=== PATIENT | male | born 1945 | race Caucasian/White ===

== ENCOUNTER 2016-12-16 16:23 | Observation (INO) | payer OTHER ==
[2016-12-16] MEDS ORDERED: XANAX PO PRN (16:39)
[2016-12-16] MEDS ORDERED: MORPHINE SULFATE INJ 2 MG IVP PRN (16:42)
--- NOTE | 2016-12-16 17:29 | DR.H&P ---
H&P - History & Physical for Day of: H&P Date: 12/16/16 - Chief Complaint Chief Complaint: ABDOMINAL PAIN, STOMACH BLOATED, CANT EAT - History of Present Illness History of Present Illness: 71WM DIRECT ADMIT FROM DR RODRIGUES OFFICE WITH CO RIGHT SIDE RIGHT LOWER ABDOMINAL PAIN WITH BLOATING. PT STATES HE HAS HAD MUCOUS IN STOOL, CANNOT EAT DUE TO SEVERE BLOATING, "FEELS FULL". PT STATES HE RAN LOW GRADE FEVER FOR 3-4 DAYS. PT HAS PMH OF HTN, OA, COPD, ETOH USE. PT HAS HX DIVERTICULITIS. PLAN TO ADMIT FOR EVALUATION OF ABDMINAL PAIN, ADMISSION LABS , CT SCAN ABD/PELVIS. 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 03/2015--[facility]--BLEEDING FROM RECTUM. 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 - Social History Does patient currently use any type of tobacco product: Yes Have you used tobacco products in the last 12 months: Yes Type of Tobacco Use: Cigarettes Does any household member use tobacco: Yes Alcohol Use: Occasionally - Review of Systems Constitutional: Fever, Weakness Eyes: No Symptoms Reported ENT: No Symptoms Reported Respiratory: No Symptoms Reported Cardiovascular: No Symptoms Reported Gastrointestinal: Nausea, Abdominal Pain, Other (GAS, BLOATING) Genitourinary: No Symptoms Reported Musculoskeletal: Back Pain Skin: No Symptoms Reported Neurological: No Symptoms Reported Oriented: Normal Eyes: Normal Ear: Normal Nose: Normal Throat: Normal Respiratory: RLL Exp. Wheeze, LLL Exp. Wheeze Cardiovascular: Normal : Normal Auscultation: Bowel Sounds: Normal Tenderness: Normal Skin: Normal Musculoskeletal: Normal Psychiatric: Anxiety Speech Pattern: Clear, Appropriate - Assessment/Plan (1) Abdominal pain Qualifiers: Abdominal location: A Status: Acute Plan: ADMISSION LABS, CBC CMP AMYLASE LIPASE, UA. CT ABD PELVIS, PAIN AND NAUSEA CONTROL (2) Mucous in stools Status: Acute
[2016-12-16] MEDS: CIPRO IV 400 MG PREMIX* 400 MG/200 ML IV.SOLN. IV SCH ×2 (18:18→21:26)
[2016-12-16 18:27] LABS: BASOPHILS # (AUTO) 0.1 X10^3/uL (0.0-0.1); BASOPHILS % (AUTO) 0.4 % (0.2-1.0); EOSINOPHILS # (AUTO) 0.4 x10^3/uL (0.0-0.2); EOSINOPHILS % (AUTO) 3.3 % (0.9-2.9); HEMATOCRIT 40.2 % (42.0-54.0); HEMOGLOBIN 13.2 g/dL (13.5-18.0); LYMPHOCYTES # (AUTO) 2.3 X10^3/uL (1.3-2.9); LYMPHOCYTES % (AUTO) 17.2 % (21.0-51.0); MEAN CORPUSCULAR HEMOGLOBIN 25.8 pg (27.0-34.0); MEAN CORPUSCULAR HGB CONC 32.9 g/dL (33.0-35.0); MEAN CORPUSCULAR VOLUME 78.4 fL (80.0-100.0); MEAN PLATELET VOLUME 8.4 fL (7.4-11.0); MONOCYTES # (AUTO) 1.9 x10^3/uL (0.3-0.8); MONOCYTES % (AUTO) 14.3 % (0.0-13.0); NEUTROPHILS # (AUTO) 8.7 x10^3/uL (2.2-4.8); NEUTROPHILS % (AUTO) 64.8 % (42.0-75.0); PLATELET COUNT 740 X10^3/uL (150.0-450.0); RED BLOOD COUNT 5.13 X10^6/uL (4.7-6.0); RED CELL DISTRIBUTION WIDTH 20.7 % (11.6-16.5); WHITE BLOOD COUNT 13.4 X10^3/uL (3.6-10.0)
[2016-12-16 18:33] LABS: ANISOCYTOSIS SLIGHT; HYPOCHROMASIA SLIGHT; MICROCYTOSIS SLIGHT; PLATELET MORPHOLOGY COMMENT NORMAL (NORMAL)
[2016-12-16] MEDS: PROTONIX INJ 40 MG VIAL IVP SCH (18:39)
[2016-12-16 18:41] LABS: ALANINE AMINOTRANSFERASE 29 Units/L (12-78); ALBUMIN 3.2 g/dL (3.4-5.0); ALKALINE PHOSPHATASE 128 Units/L (46-116); AMYLASE 55 Units/L (25-115); ASPARTATE AMINO TRANSFERASE 17 Units/L (15-37); BLOOD UREA NITROGEN 19 mg/dL (7-18); CALCIUM 9.6 mg/dL (8.5-10.1); CARBON DIOXIDE 28.1 mmol/L (21-32); CHLORIDE 97 mmol/L (98-107); COR CA(FOR HYPOALB) 10.2 mg/dL (8.5-10.1); COR NA(FOR HYPERGLY) 136 mmol/L (136-145); CREATININE 1.22 mg/dL (0.70-1.30); GLUCOSE 179 mg/dL (65-99); LIPASE 75 Units/L (73-393); SODIUM 134 mmol/L (136-145); TOTAL PROTEIN 8.4 g/dL (6.4-8.2); eGFR BLACK RACES > 60 (>60); eGFR NON BLACK RACES > 60 (>60)
[2016-12-16 19:12] LABS: BILIRUBIN,URINE NEGATIVE (NEGATIVE); BLOOD/HEMOGLOBIN,URINE 1+ (NEGATIVE); GLUCOSE, URINE 1+ (NEGATIVE); KETONES,URINE 1+ (NEGATIVE); LEUKOCYTE ESTERASE ,URINE 1+ (NEGATIVE); NITRITES,URINE NEGATIVE (NEGATIVE); PROTEIN,URINE 2+ (NEGATIVE); UROBILINOGEN,URINE NORMAL (NORMAL)
[2016-12-16 19:17] LABS: APPEARANCE,URINE HAZY (CLEAR); BACTERIA,URINE TRACE /HPF (NEGATIVE); COLOR,URINE YELLOW (YELLOW); RBC,URINE 0-2 /HPF (NEGATIVE); SQUAMOUS EPITHELIAL CELL,UR NEGATIVE /HPF (NEGATIVE)
[2016-12-16] MEDS ORDERED: NS 100 ML IV 100 ML IV ONE (19:46)
--- NOTE | 2016-12-16 21:06 | RAD ---
HISTORY: Abdominal pain, fever Study: Single view chest Comparison: 03/13/2015 Findings: Lungs appear hyperinflated. Overlapping rib shadows are seen at the left lung base. The lungs are cl ear without consolidation, effusion or pneumothorax. The cardiac and mediastinal contours are within normal limits. The soft tissues are unremarkable. IMPRESSION: 1. No acute cardiopulmonary abnormality. Reported By:
--- NOTE | 2016-12-16 21:22 | CT ---
HISTORY: Abdominal pain, fever, right lower abdominal pain, mucous in stool Study: CT abdomen and pelvis with contrast Comparison: 03/29/2016, 03/13/2015 Technique: Multiple axial images of the abdomen and pelvis were obtained with IV contrast. Oral contrast was a dministered. Dose reduction techniques including Automated Exposure Control (AEC) and adjustment of mA and kV were utilized. Findings: Emphysematous changes are present at the lung bases. The spleen is removed. The liver, kidneys and adrenal glands are stable and unremarkable. The gallbladder is normal. 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 There is a low-density cystic lesion seen at the body of the pancreas at the resection site measuring 2.7 by 2.1 cm. There is an additional lo bular soft tissue lesion just anterior to the above described cystic lesion measuring 3.4 x 2.2 cm t hat is smaller from the prior exam where it previously measured 4.6 x 3 cm. Findings could represent postsurgical change or lymph nodes. No free intraperitoneal air. No evidence of intestinal obstruction or inflammation. Oral contrast re aches the rectum. The cecum is positioned in the right upper abdomen. The appendix is not visualized . There are scattered colonic diverticula present without acute inflammation. No free fluid identifi ed. The soft tissues and osseous structures are unremarkable. The vascular structures are within normal limits for age. No pathologically enlarged lymph nodes are identified. IMPRESSION: 1. 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 Continued attention on followup is recommended. There is also an adjacent lobular soft tissue lesion seen anteriorly that measures 3.4 x 2.2 cm on today's exam ( previously 4.6 x 3 cm) that could represent resolving postsurgical changes versus lymph nodes. 2. Chronic findings as described above. Reported By:
[2016-12-17 05:57] LABS: BASOPHILS # (AUTO) 0.1 X10^3/uL (0.0-0.1); BASOPHILS % (AUTO) 0.7 % (0.2-1.0); EOSINOPHILS # (AUTO) 0.6 x10^3/uL (0.0-0.2); EOSINOPHILS % (AUTO) 4.7 % (0.9-2.9); HEMATOCRIT 36.3 % (42.0-54.0); HEMOGLOBIN 11.9 g/dL (13.5-18.0); LYMPHOCYTES # (AUTO) 1.9 X10^3/uL (1.3-2.9); LYMPHOCYTES % (AUTO) 16.1 % (21.0-51.0); MEAN CORPUSCULAR HEMOGLOBIN 26.2 pg (27.0-34.0); MEAN CORPUSCULAR HGB CONC 32.8 g/dL (33.0-35.0); MEAN PLATELET VOLUME 8.8 fL (7.4-11.0); MONOCYTES # (AUTO) 2.3 x10^3/uL (0.3-0.8); MONOCYTES % (AUTO) 19.7 % (0.0-13.0); NEUTROPHILS # (AUTO) 6.9 x10^3/uL (2.2-4.8); NEUTROPHILS % (AUTO) 58.8 % (42.0-75.0); PLATELET COUNT 641 X10^3/uL (150.0-450.0); RED BLOOD COUNT 4.54 X10^6/uL (4.7-6.0); RED CELL DISTRIBUTION WIDTH 20.5 % (11.6-16.5); WHITE BLOOD COUNT 11.8 X10^3/uL (3.6-10.0)
[2016-12-17 06:30] LABS: ALANINE AMINOTRANSFERASE 23 Units/L (12-78); ALBUMIN 2.6 g/dL (3.4-5.0); ALKALINE PHOSPHATASE 105 Units/L (46-116); ANISOCYTOSIS 1+; ASPARTATE AMINO TRANSFERASE 21 Units/L (15-37); BLOOD UREA NITROGEN 13 mg/dL (7-18); CALCIUM 9.3 mg/dL (8.5-10.1); CARBON DIOXIDE 26.4 mmol/L (21-32); CHLORIDE 101 mmol/L (98-107); COR CA(FOR HYPOALB) 10.4 mg/dL (8.5-10.1); COR NA(FOR HYPERGLY) 137 mmol/L (136-145); CREATININE 1.03 mg/dL (0.70-1.30); GLUCOSE 133 mg/dL (65-99); PLATELET MORPHOLOGY COMMENT NORMAL (NORMAL); SODIUM 136 mmol/L (136-145); eGFR BLACK RACES > 60 (>60); eGFR NON BLACK RACES > 60 (>60)
[2016-12-17] MEDS: PROTONIX INJ 40 MG VIAL IVP SCH (09:46)
[2016-12-17] MEDS: CIPRO IV 400 MG PREMIX* 400 MG/200 ML IV.SOLN. IV SCH ×2 (09:46→21:53)
[2016-12-17] MEDS: NORCO 10/325 TAB PO PRN ×2 (11:25→21:54)
[2016-12-17] MEDS ORDERED: NS 100 ML IV 100 ML IV ONE (13:42)
[2016-12-17] MEDS: PEPCID 20 MG IV PREMIX* 20 MG/50 ML BAG IV SCH ×2 (13:45→21:53)
[2016-12-17] MEDS: DUONEB 0.5 MG/3 MG NEB SCH ×2 (14:06→21:36)
[2016-12-17 15:16] VITALS: BMI 23.6
[2016-12-17] MEDS ORDERED: PREVNAR 13 IM ONE (15:17)
--- NOTE | 2016-12-17 17:35 | PCM.PROG ---
Progress Note - Progress Note for Day of Date: 12/17/16 - Subjective Subjective: NAUSEA, CANNOT EAT, BLOATING. 71 WM ADMITTED ON 12/16 FOR TREATMENT OF ABD PAIN N/V/D. PT HAD CT ABD PELVIS ON ADMISSION, PLAN TO HIDA Q AM. WILL CONTINUE PPI, IV CIPRO. PT HAS HX NON MALIGNANT PANCREATIC MASS. WILL CHECK TUMOR MARKERS AND PSA. REPEAT AM LABS - Past Medical Family Social History Past Med/Fam/Surg Hx: No changes since H&P Allergies: Allergies No Known Drug Allergy Allergy (Verified 03/13/15 12:30) - Review of Systems ROS: No change since H&P - Vital Signs and I&O's Vital Signs: Temperature 98.2 F Pulse Rate [Left Brachial] 114 Pulse Rate [Right Brachial] 84 Pulse Rate 90 Respiratory Rate 20 Blood Pressure [Left Arm] 136/89 Blood Pressure [Right Arm] 154/90 Blood Pressure [Left Arm] 156/89 Blood Pressure [Right Arm] 130/77 Blood Pressure 164/82 O2 Sat by Pulse Oximetry 95 Intake and Output: Intake & Output 12/15/16 12/16/16 12/17/16 12/18/16 11:59 11:59 11:59 11:59 Intake Total 300 605 Balance 300 605 - Physical Exam Oriented: Normal Eyes: Normal Ear: Normal Nose: Normal Throat: Normal Respiratory: Diminished Cardiovascular: Normal : Normal Auscultation: Bowel Sounds: Normal Tenderness: RUQ, RLQ, Epigastric Skin: Normal Musculoskeletal: Normal Psychiatric: Anxiety Speech Pattern: Clear, Appropriate - Laboratory and Diagnostics Result Diagrams: 12/17/16 03:25 12/17/16 03:25 Labs: Laboratory WBC 11.8 X10^3/uL (3.6-10.0) H 12/17/16 03:25 RBC 4.54 X10^6/uL (4.7-6.0) L 12/17/16 03:25 Hgb 11.9 g/dL (13.5-18.0) L 12/17/16 03:25 Hct 36.3 % (42.0-54.0) L 12/17/16 03:25 MCV 80.0 fL (80.0-100.0) 12/17/16 03:25 MCH 26.2 pg (27.0-34.0) L 12/17/16 03:25 MCHC 32.8 g/dL (33.0-35.0) L 12/17/16 03:25 RDW 20.5 % (11.6-16.5) H 12/17/16 03:25 Plt Count 641 X10^3/uL (150.0-450.0) H 12/17/16 03:25 Plt Count Comment Increased (ADEQUATE) 12/17/16 03:25 MPV 8.8 fL (7.4-11.0) 12/17/16 03:25 Neut % 58.8 % (42.0-75.0) 12/17/16 03:25 Lymph % 16.1 % (21.0-51.0) L 12/17/16 03:25 [place] % 19.7 % (0.0-13.0) H 12/17/16 03:25 Eos % 4.7 % (0.9-2.9) H 12/17/16 03:25 Baso % 0.7 % (0.2-1.0) 12/17/16 03:25 Neut # 6.9 x10^3/uL (2.2-4.8) H 12/17/16 03:25 Lymph # 1.9 X10^3/uL (1.3-2.9) 12/17/16 03:25 [place] # 2.3 x10^3/uL (0.3-0.8) H 12/17/16 03:25 Eos # 0.6 x10^3/uL (0.0-0.2) H 12/17/16 03:25 Baso # 0.1 X10^3/uL (0.0-0.1) 12/17/16 03:25 Absolute Nucleated RBC 0.1 /100WBC 12/17/16 03:25 Plt Morphology Comment Normal (NORMAL) 12/17/16 03:25 RBC Morphology Abnormal (NORMAL) 12/17/16 03:25 Hypochromasia Slight A 12/16/16 17:55 Anisocytosis 1+ A 12/17/16 03:25 Microcytosis Slight A 12/16/16 17:55 Sodium 136 mmol/L (136-145) 12/17/16 03:25 Corrected Sodium 137 mmol/L (136-145) 12/17/16 03:25 Potassium 4.3 mmol/L (3.5-5.1) 12/17/16 03:25 Chloride 101 mmol/L (98-107) 12/17/16 03:25 Carbon Dioxide 26.4 mmol/L (21-32) 12/17/16 03:25 BUN 13 mg/dL (7-18) 12/17/16 03:25 Creatinine 1.03 mg/dL (0.70-1.30) 12/17/16 03:25 Est GFR (MDRD) Af Amer > 60 (>60) 12/17/16 03:25 Est GFR (MDRD) Non-Af > 60 (>60) 12/17/16 03:25 Glucose 133 mg/dL (65-99) H 12/17/16 03:25 Calcium 9.3 mg/dL (8.5-10.1) 12/17/16 03:25 Corrected Calcium 10.4 mg/dL (8.5-10.1) H 12/17/16 03:25 Total Bilirubin 0.30 mg/dL (0.2-1.0) 12/17/16 03:25 AST 21 Units/L (15-37) 12/17/16 03:25 ALT 23 Units/L (12-78) 12/17/16 03:25 Alkaline Phosphatase 105 Units/L (46-116) 12/17/16 03:25 Total Protein 7.0 g/dL (6.4-8.2) 12/17/16 03:25 Albumin 2.6 g/dL (3.4-5.0) L 12/17/16 03:25 Globulin 4.4 g/dL (2.5-4.5) 12/17/16 03:25 Albumin/Globulin Ratio 0.6 Ratio (1.1-2.1) L 12/17/16 03:25 Amylase 55 Units/L (25-115) 12/16/16 17:55 Lipase 75 Units/L (73-393) 12/16/16 17:55 Total PSA 3.53 ng/mL (0.13-4.0) 12/17/16 03:25 Specimen Type Clean catch urine 12/16/16 19:05 Urine Color Yellow (YELLOW) 12/16/16 19:05 Urine Appearance Hazy (CLEAR) 12/16/16 19:05 Urine pH 5.0 (5.0 - 8.0) 12/16/16 19:05 Ur Specific [place] 1.020 (1.000-1.030) 12/16/16 19:05 Urine Protein 2+ (NEGATIVE) 12/16/16 19:05 Urine Glucose (UA) 1+ (NEGATIVE) 12/16/16 19:05 Urine Ketones 1+ (NEGATIVE) 12/16/16 19:05 Urine Occult Blood 1+ (NEGATIVE) 12/16/16 19:05 Urine Nitrite Negative (NEGATIVE) 12/16/16 19:05 Urine Bilirubin Negative (NEGATIVE) 12/16/16 19:05 Urine Urobilinogen Normal (NORMAL) 12/16/16 19:05 Ur Leukocyte Esterase 1+ (NEGATIVE) 12/16/16 19:05 Urine RBC 0-2 /HPF (NEGATIVE) 12/16/16 19:05 Urine WBC 3-5 /HPF (NEGATIVE) 12/16/16 19:05 Ur Squamous Epith Cells Negative /HPF (NEGATIVE) 12/16/16 19:05 Urine Bacteria Trace /HPF (NEGATIVE) 12/16/16 19:05 Ur Culture Indicated? No/not indicated 12/16/16 19:05 - Plan (1) Abdominal pain Status: Acute Qualifiers: Abdominal location: A Plan: AM LABS, PPI THERAPY, HIDA SCAN Q AM , STOOL STUDIES. CT ABD PELVIS, PAIN AND NAUSEA CONTROL (2) Mucous in stools Status: Acute
[2016-12-17] MEDS ORDERED: PATIENT'S HOME MEDICATION (Rivaroxaban [Xarelto] 1 TAB) PO SCH (20:30)
[2016-12-17] MEDS ORDERED: PROTONIX TAB 40 MG PO SCH (21:00)
[2016-12-17] MEDS ORDERED: NORVASC TAB 5 MG PO SCH (21:00)
[2016-12-17] MEDS: LOPRESSOR TAB 25 MG PO SCH (21:54)
[2016-12-17] MEDS: CORDARONE TAB 200 MG PO SCH (23:17)
[2016-12-18] MEDS: DUONEB 0.5 MG/3 MG NEB SCH ×2 (04:59→13:26)
[2016-12-18 06:26] LABS: BASOPHILS # (AUTO) 0.1 X10^3/uL (0.0-0.1); BASOPHILS % (AUTO) 0.5 % (0.2-1.0); EOSINOPHILS # (AUTO) 0.4 x10^3/uL (0.0-0.2); EOSINOPHILS % (AUTO) 3.4 % (0.9-2.9); HEMATOCRIT 34.9 % (42.0-54.0); HEMOGLOBIN 11.4 g/dL (13.5-18.0); LYMPHOCYTES # (AUTO) 1.7 X10^3/uL (1.3-2.9); LYMPHOCYTES % (AUTO) 13.9 % (21.0-51.0); MEAN CORPUSCULAR HEMOGLOBIN 25.7 pg (27.0-34.0); MEAN CORPUSCULAR HGB CONC 32.6 g/dL (33.0-35.0); MEAN CORPUSCULAR VOLUME 78.9 fL (80.0-100.0); MEAN PLATELET VOLUME 8.4 fL (7.4-11.0); MONOCYTES # (AUTO) 2.5 x10^3/uL (0.3-0.8); MONOCYTES % (AUTO) 20.6 % (0.0-13.0); NEUTROPHILS # (AUTO) 7.5 x10^3/uL (2.2-4.8); NEUTROPHILS % (AUTO) 61.6 % (42.0-75.0); PLATELET COUNT 613 X10^3/uL (150.0-450.0); RED BLOOD COUNT 4.42 X10^6/uL (4.7-6.0); RED CELL DISTRIBUTION WIDTH 20.8 % (11.6-16.5); WHITE BLOOD COUNT 12.1 X10^3/uL (3.6-10.0)
[2016-12-18 07:18] LABS: ALANINE AMINOTRANSFERASE 19 Units/L (12-78); ALBUMIN 2.4 g/dL (3.4-5.0); ALKALINE PHOSPHATASE 96 Units/L (46-116); ASPARTATE AMINO TRANSFERASE 18 Units/L (15-37); BLOOD UREA NITROGEN 11 mg/dL (7-18); CALCIUM 9.1 mg/dL (8.5-10.1); CARBON DIOXIDE 28.4 mmol/L (21-32); CHLORIDE 100 mmol/L (98-107); COR CA(FOR HYPOALB) 10.4 mg/dL (8.5-10.1); COR NA(FOR HYPERGLY) 138 mmol/L (136-145); CREATININE 1.06 mg/dL (0.70-1.30); GLUCOSE 171 mg/dL (65-99); SODIUM 136 mmol/L (136-145); TOTAL PROTEIN 6.7 g/dL (6.4-8.2); eGFR BLACK RACES > 60 (>60); eGFR NON BLACK RACES > 60 (>60)
[2016-12-18 07:34] LABS: ANISOCYTOSIS 1+; PLATELET MORPHOLOGY COMMENT NORMAL (NORMAL); POIKILOCYTOSIS 1+
[2016-12-18] MEDS ORDERED: MILK OF MAGNESIA PO PRN (08:40)
[2016-12-18] MEDS ORDERED: COLACE CAP 100 MG PO PRN (08:40)
[2016-12-18] MEDS: CORDARONE TAB 200 MG PO SCH (08:53)
[2016-12-18] MEDS: LOPRESSOR TAB 25 MG PO SCH (08:54)
[2016-12-18] MEDS: PEPCID 20 MG IV PREMIX* 20 MG/50 ML BAG IV SCH (08:54)
[2016-12-18] MEDS: CIPRO IV 400 MG PREMIX* 400 MG/200 ML IV.SOLN. IV SCH (08:54)
[2016-12-18] MEDS: PROTONIX INJ 40 MG VIAL IVP SCH (08:54)
[2016-12-18] MEDS ORDERED: XARELTO PO SCH (09:00)
--- NOTE | 2016-12-18 14:04 | NM ---
HISTORY: Abdominal pain Study: Nuclear medicine HIDA scan with ejection fraction Comparison: None Technique: Multiple scintigraphic images of the abdomen were obtained the intravenous administration of 5.4 mCi of technetium labeled Choletec. Following distention of the gallbladder with radiotracer the patient received a fatty meal. An estim ated gallbladder ejection fraction was calculated based on the physiologic response of this infusion . Findings: Homogeneous uptake of radiotracer is seen throughout the liver. This intrabiliary ductal system is observed normally. The common hepatic and common bile duct grossly appear unremarkable with normal biliary-bowel transit. The gallbladder is observed to fill normally. After the fatty meal a gallbladder ejection fraction of 15.3% (normal > 35%) is observed. IMPRESSION: 1. Normal hepatobiliary imaging scan. 2. Abnormal l gallbladder ejection fraction 15.3% Reported By:
[2016-12-18] MEDS: NORCO 10/325 TAB PO PRN (15:05)
[2016-12-18 18:28] VITALS: BP 162/90
== END 2016-12-18 19:18 | disposition home or self-care (01) ==
LOC: MERGE 16:23 → MED/SURG 16:23
PROVIDERS: ADMIT Internal Medicine; ATTEND Internal Medicine
DX: R10.84 Generalized abdominal pain (principal); R50.9 Fever, unspecified; Z66 Do not resuscitate; M13.89 Other specified arthritis, multiple sites; J44.9 Chronic obstructive pulmonary disease, unspecified; K21.9 Gastro-esophageal reflux disease without esophagitis; I10 Essential (primary) hypertension; R19.5 Other fecal abnormalities; D72.828 Other elevated white blood cell count; D64.89 Other specified anemias; B96.81 Helicobacter pylori [H. pylori] as the cause of diseases classified elsewhere; R97.0 Elevated carcinoembryonic antigen [CEA]
CPT/HCPCS: 36415; 71010; 74177; 78227; 80053; 81001; 82150; 82378; 83036; 83690; 84153; 85025; 86316; 86677; 87040; 94640; 94760; A4222; C9113; S0028; 90670; G0378; J0744; J2270; J7620